=== PATIENT | male | born 1955 | race Caucasian/White ===

== ENCOUNTER 2017-08-31 11:23 | Outpatient (CLI) | payer OTHER ==
[2017-08-31] MEDS ORDERED: Iopamidol 370 76% 100 ML VIAL ONE (11:55)
== END 2017-08-31 11:24 | disposition home or self-care (01) ==
LOC: CT 11:23
PROVIDERS: ATTEND Urology
DX: C61 Malignant neoplasm of prostate (principal); R31.29 Other microscopic hematuria; R97.20 Elevated prostate specific antigen [PSA]; Z87.442 Personal history of urinary calculi
CPT/HCPCS: 74178

== ENCOUNTER 2017-09-14 10:30 | Outpatient (CLI) | payer OTHER ==
[2017-09-14 11:17] LABS: Hemoglobin 15.5 g/dL (14.0-18.0); Mean Corpuscular HGB CONC 34.1 g/dL (32.0-36.0); Mean Corpuscular Hemoglobin 32.5 pg (27.0-31.0); Mean Corpuscular Volume 95.5 fl (80.0-94.0); Mean Platelet Volume 6.8 fL (7.4-10.4); Platelet Count 268 thou/uL (130-400); RBC Distribution Width 11.3 % (11.5-14.5); Red Blood Cell (RBC) Count 4.77 mill/uL (4.70-6.10); White Blood Cell (WBC) Count 6.4 thou/uL (4.8-10.8)
[2017-09-14 11:22] LABS: PTT 30.2 SEC (22.9-36.1)
[2017-09-14 11:41] LABS: Bilirubin Negative (Negative); Blood, Urine Large (Negative); Clarity CLEAR (Clear); Glucose, Urine (Dipstick) Negative (Negative); Leukocyte Trace (Negative); Nitrite Negative (Negative); Protein, Urine (Dipstick) Negative (Neg-Trace); Specific Gravity, Urine 1.016 (1.002-1.036); Urobilinogen 0.2 mg/dL (0.2-1.0)
[2017-09-14 11:43] LABS: Bacteria/HPF None Seen HPF (None Seen); Hyaline Casts/LPF 0-3 HYALINE CAST LPF (0-3 Hyaline); Pathc Cast-AUWi Flag 0.27 (0-2.49); RBC/HPF GREATER THAN 50-TNTC HPF (0-3); Squamous Epithelial 0-3 HPF (0-3)
[2017-09-14 11:45] LABS: Anion Gap 13 mmol/L (10-20); BUN (Urea Nitrogen) 17 mg/dL (8.4-25.7); Calc. Creatinine Clearance 0 mL/min (70-130); Calcium 9.8 mg/dL (7.8-10.44); Carbon Dioxide 27 mmol/L (23-31); Chloride 105 mmol/L (98-107); Estimated GFR-MDRD 83; Glucose 87 mg/dL (80-115); Potassium 4.4 mmol/L (3.5-5.1); Sodium 141 mmol/L (136-145)
== END 2017-09-14 10:31 | disposition home or self-care (01) ==
LOC: LABBT 10:30
PROVIDERS: ATTEND Urology
DX: Z01.818 Encounter for other preprocedural examination (principal); N20.1 Calculus of ureter
CPT/HCPCS: 80048; 81001; 85027; 85610; 85730; 87086

== ENCOUNTER 2017-09-25 05:54 | Day surgery (SDC) | payer OTHER ==
[2017-09-14 10:38] VITALS: BMI 30.5
[2017-09-25] MEDS ORDERED: Levofloxacin 500 mg/D5W 100 ml Premix Bag ONE (06:23)
[2017-09-25] MEDS ORDERED: Fentanyl 100 MCG/2 ML VIAL ONE ×2 (06:56→09:26)
[2017-09-25] MEDS ORDERED: Iothalamate Meglumine 60% 50 ML VIAL FS ONE (07:13)
--- NOTE | 2017-09-25 08:07 | RAD ---
PORTABLE AP ABDOMINAL RADIOGRAPH: Date: 09/25/17 HISTORY: Preoperative evaluation. FINDINGS: Bowel gas pattern is nonspecific. Calcifications overlie the pelvis, shown to represent phleboliths o n prior CT abdomen and pelvis on 03/06/15. No obvious suspicious calcifications are seen overlying re nal collecting systems or expected location of either ureter. Degenerative changes are noted in the s pine. There is left hip osteoarthritis. IMPRESSION: 1. Nonspecific bowel gas pattern. 2. No suspicious calcifications are seen. POS: OFF
[2017-09-25] MEDS ORDERED: Oxybutynin 5 MG TAB ONE (09:31)
[2017-09-25] MEDS ORDERED: Phenazopyridine HCl 97.5 MG TABLET ONE (09:32)
--- NOTE | 2017-09-25 11:51 | OP ---
DATE OF PROCEDURE: 09/25/2017 PREOPERATIVE DIAGNOSES: This is a 62-year-old male with, 1. Recent diagnosis of clinical T1c, Shivani score 3+3, adenocarcinoma of the prostate. 2. Trilobar hyperplasia of the prostate, volume approximately 100 grams with severe obstruction. 3. 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 SURGEON: Laya Khalil D.O. ANESTHESIA: General. COMPLICATIONS: None apparent. DISPOSITION: To the recovery room in stable condition. SPECIMEN: Left ureteral calculi fragments for stone analysis. DRAINS: 1. A 6 x 26 double-J left ureteral stent. 2. A #20 Armenian three-way 30 mL Monae catheter to gravity drainage. CBI port plugged. INDICATIONS FOR THE PROCEDURE AND HISTORY: Mr. Rucker is a 62-year-old male with history of severely obstructing trilobar hyperplasia of the prostate. He has a history of elevated PSA, diagnosed with clinical T1c prostate cancer. Surgical treatment for his prostate cancer is pending. I informed the patient regarding treatment of his left distal ureteral stone given time present with this stone nidus with non-progression. Risks and complications of the procedure was discussed with him in detail including, but not limited to, bleeding, pain, infection, injury to adjacent organs, urosepsis, stricture formation, clot retention, possible secondary procedure given very large prostate with a significant intravesical median lobe, questions were answered to his satisfaction and he desired to proceed. All questions were encouraged. DESCRIPTION OF THE PROCEDURE: After an informed consent is signed, the patient is taken to the operating room, placed in a dorsal lithotomy position with the genital area prepped and draped in the usual surgical sterile fashion. A 21- Armenian cystoscope was utilized for cystoscopy. Upon entering the urethra again noted is severely obstructing prostatic urethra with a significant intravesical median lobe. The intravesical median lobe measures over 3 cm. The UOs were unable to be identified in my office despite retroflexion. Upon entering the bladder, even with passing the scope, there was oozing from his trilobar hyperplasia of the prostate. I had to convert to a 30-degree lens. The UOs were still difficult to see. With further perseverance, we were able to identify the left UO, which was just proximal to the reflection of the prostatic urethral mucosa of intravesical median lobe. We had to utilize a 70- degree lens for wire placement, as it is only visible with the 70 degree lens. A 0.35 central wire was able to be cannulated into the left upper pole. Retrograde pyelogram confirmed proper placement. At this time, with the wire in situ using [employer], a 4 cm 12-Armenian balloon dilator intramural ureter was dilated. We subsequently tried to pass the rigid ureteroscope; however, the UOs were difficult to engage given very large intravesical median lobe. I had to pass a second working wire along the initial safety wire to pass my rigid ureteroscope under guidewire assistance. The stone was visualized , using 365 micron laser fiber at 1.0 joules, I fragmented the stone into multiple pieces. These were basket extracted atraumatically. We delivered some of them for chemical analysis. At the end of the procedure, I did pass the rigid ureteroscope to the level of the mid ureter with no further stone nidus. A 6 x 26 double-J ureteral stent was passed with distal tail in situ. Given he has a very large prostate, with some oozing component from the prostatic urethra, moreover baseline history of incomplete void, I will leave an indwelling Monae catheter, as he is high risk for postop urinary retention. A 20-Armenian 30 mL three-way Monae catheter was passed, 30 mL of sterile water insufflated, and CBI port plugged. Catheter was attached to a leg bag. The patient will be discharged home with indwelling Monae catheter. This will remain in situ for 1 week in which he will present to my office for local stent pull voiding trial. I will advise the patient to increase his Flomax to b.i.d. dosing until followup appointment. He is discharged with Cipro x7 days, Colace p.r.n., Azo p.r.n. [place] 5/325 #50 p.r.n. MTDD
--- NOTE | 2017-09-25 13:16 | RAD ---
NINE FLUOROSCOPIC SPOT IMAGES FROM AN IVP: INDICATION: History of ureteral stones. COMPARISON: Prior exam dated 09/25/[address] examination dated 03/06/15. FINDINGS: Submitted images demonstrate canalization of the upper renal collecting system and subsequent placeme nt of a left ureteral stent. The stent projects in the expected position. Cystoscopy cannula is see n within the lower pelvis. No suspicious calcifications are grossly evident. IMPRESSION: Left ureteral stent placement. POS: [facility]
[2017-09-25] MEDS ORDERED: Glycopyrrolate 0.2 MG/ML 5 ML SYRINGE ONE (14:53)
[2017-09-25] MEDS ORDERED: Lidocaine 1% PF 5 ML VIAL ONE (14:53)
[2017-09-25] MEDS ORDERED: Ondansetron HCl/PF 4 MG/2 ML Vial ONE (14:53)
[2017-09-25] MEDS ORDERED: Dexamethasone 20 MG/5 ML VIAL ONE (14:53)
[2017-09-25] MEDS ORDERED: PROPOFOL 200 MG/20 ML VIAL ONE (14:53)
[2017-09-28 16:16] LABS: CA Oxalate Monohydrate 95 % (.); Color Brown (.); Stone Weight 28.8 mg (.)
== END 2017-09-25 11:30 | disposition home or self-care (01) ==
LOC: SDC 05:54
PROVIDERS: ATTEND Urology
PROC: 0T778DZ Dilation of Left Ureter with Intraluminal Device, Via Natural or Artificial Opening Endoscopic (ICD-10-PCS; principal; 2017-09-25)
PROC: 0TF78ZZ Fragmentation in Left Ureter, Via Natural or Artificial Opening Endoscopic (ICD-10-PCS; principal; 2017-09-25)
DX: N20.1 Calculus of ureter (principal); C61 Malignant neoplasm of prostate; Z79.899 Other long term (current) drug therapy; Z90.89 Acquired absence of other organs; Z98.890 Other specified postprocedural states; Z87.442 Personal history of urinary calculi
CPT/HCPCS: 74018; 74420; 82365; 88300; 96374; C1758; C1769; J1100; J1956; J2001; J2405; J2704; J3010; Q9961

== ENCOUNTER 2017-10-31 07:20 | Outpatient (CLI) | payer OTHER ==
--- NOTE | 2017-10-31 10:47 | CT ---
CT ANGIOGRAM OF THE CHEST WITH IV CONTRAST AND 3D POSTPROCESSING: HISTORY: Thoracic aortic aneurysm without rupture, shortness of breath. FINDINGS: Coronal oblique ct angiographic image of the thoracic aorta demonstrates the following measurements. At Aortic Annulus: 2.4 cm. At Aortic Sinuses of Valsalva: 4.2 cm. At sinotubular junction: 3.4 CM, Mid ascending aorta 3.8 cm. High Ascending Aorta: 3.6 cm. Descending Aorta: 2.9 cm. In the axial plane, the ascending thoracic aorta and the descending thoracic aorta at the level of th e right main pulmonary artery measures 4 cm and 3 cm respectively. No intimal flap is seen in the thoracic aorta to suggest dissection. No pleural or pericardial effus ions are seen. No pneumothoraces, lobar consolidation, or lung nodules/masses are seen. There are d ependent changes in the posterior lung bases. There are degenerative changes in the spine. IMPRESSION: Ectatic thoracic aorta. POS: [facility]
[2017-10-31] MEDS ORDERED: ISOVUE-370 76%-LOCM 1 ML ONE (16:17)
== END 2017-10-31 07:21 | disposition home or self-care (01) ==
LOC: CT 07:20
PROVIDERS: ATTEND Internal Medicine Cardiovascular Disease
DX: Z01.810 Encounter for preprocedural cardiovascular examination (principal); I71.2 Thoracic aortic aneurysm, without rupture; R06.02 Shortness of breath; I77.810 Thoracic aortic ectasia
CPT/HCPCS: 71275

== ENCOUNTER 2017-11-14 13:53 | Outpatient (CLI) | payer OTHER ==
[2017-11-14] MEDS ORDERED: Gadobenate Dimeglumine 529 MG/1 ML (20ML VIAL) ONE (15:20)
--- NOTE | 2017-11-14 17:42 | MRI ---
MRI OF THE PELVIS WITH AND WITHOUT IV CONTRAST: INDICATION: History of prostate cancer status post biopsy in August of 2017 without chemotherapy or radiation th [facility]. TECHNIQUE: Multiplanar, multisequence MR images were obtained of the pelvis with and without IV contrast utilizi ng 20 cc of MultiHance. FINDINGS: The prostate measures 7.6 x 4.7 x 6.8 cm. The total prostatic volume is 126.3 cc. No suspicious signal abnormality seen within the peripheral zone on the ADC images. No definite T2 s ignal abnormality is evident. There is prominent heterogeneity of the central gland consistent with changes of BPH. There is a herniated nodule within the base of the bladder. There is wall thickening involving the bladder likely reflecting a component of chronic bladder outle t obstruction. Visualized colon demonstrates a few scattered diverticula. Rectum and perirectal sof t tissues are unremarkable. No definite abnormal region of enhancement is evident. No abnormal lymphadenopathy is evident. There is moderate left and mild right degenerative arthrosis . IMPRESSION: PI-RADS category 2 - low (clinically significant cancer is unlikely to be present). POS: [facility]
== END 2017-11-14 13:54 | disposition home or self-care (01) ==
LOC: TBSIIMAG 13:53
PROVIDERS: ATTEND Urology
DX: C61 Malignant neoplasm of prostate (principal)
CPT/HCPCS: 72197; 82565; A9579